=== PATIENT | female | born 2000 | race Caucasian/White ===

== ENCOUNTER 2024-06-20 16:08 | Emergency (ER) | payer OTHER ==
[2024-06-20 16:16] VITALS: BP 119/78; PULSE 70; RESP 18; TEMP 98.6; BMI 25.7
[2024-06-20] MEDS ORDERED: ONDANSETRON 4 MG/2 ML VIAL ONE (17:21)
[2024-06-20] MEDS ORDERED: FAMOTIDINE 20 MG/50 ML IVPB 20 MG/50 ML MG IVPB ONE (17:21)
[2024-06-20] MEDS: ONDANSETRON 4 MG/2 ML VIAL IVPUSH ONE (17:38)
[2024-06-20] MEDS: FAMOTIDINE 20 MG/50 ML IVPB 20 MG/50 ML MG IVPB ONE (17:38)
[2024-06-20] MEDS: SODIUM CHLORIDE 0.9% 500 ML INFUS.BAG IV ONE (17:38)
[2024-06-20 18:22] LABS: BASO % 0.4 % (0-2.0); EOS % 0.6 % (0-4.5); HEMATOCRIT 41.1 % (32.4-45.2); HEMOGLOBIN 14.2 GM/dL (10.7-15.3); LYMPH % 27.6 % (8-40); MCH 29.2 pg (25.7-33.7); MCHC 34.7 g/dl (32.0-36.0); MEAN CELL VOLUME 84.3 fl (80-96); MONO % 5.1 % (3.8-10.2); NEUT % 66.3 % (42.8-82.8); PLATELET COUNT 224 10^3/uL (134-434); RBC 4.88 M/mm3 (3.60-5.2); RDW 14.1 % (11.6-15.6); WHITE BLOOD COUNT 10.4 K/mm3 (4.0-10.0)
[2024-06-20 18:50] LABS: POTASSIUM 3.9 mmol/L (3.5-5.1)
[2024-06-20 18:52] LABS: ALBUMIN 4.4 g/dl (3.4-5.0); BLOOD UREA NITROGEN 6.9 mg/dL (7-18); CALCIUM 9.6 mg/dL (8.5-10.1)
[2024-06-20 18:56] LABS: CREATININE 0.6 mg/dL (0.55-1.3)
[2024-06-20 18:57] LABS: BILIRUBIN,TOTAL 0.7 mg/dL (0.2-1); TOT PROT 7.6 g/dl (6.4-8.2)
== END 2024-06-20 20:27 | disposition home or self-care (01) ==
LOC: JER 16:08
PROC: 3E033GC Introduction of Other Therapeutic Substance into Peripheral Vein, Percutaneous Approach (ICD-10-PCS; principal; 2024-06-20)
PROC: 3E033GC Introduction of Other Therapeutic Substance into Peripheral Vein, Percutaneous Approach (ICD-10-PCS; 2024-06-20)
DX: O26.891 Other specified pregnancy related conditions, first trimester (principal); R11.0 Nausea; Z3A.01 Less than 8 weeks gestation of pregnancy
CPT/HCPCS: 36415; 76815; 80053; 82272; 83690; 84702; 84703; 85025; 93005; 93010; 99285-25

== ENCOUNTER 2025-02-05 19:12 | Inpatient (IN) | payer OTHER ==
[2025-02-05] MEDS: ELECTROLYTE-148 SOLN 1,000 ML IV SCH (22:00)
[2025-02-05 22:20] LABS: ABSOLUTE IMMATURE GRANULOCYTES 0.05 x10^3/uL (0.0-0.031); EOSINOPHIL % 0.2 % (0.7-5.8); HEMATOCRIT 32.2 % (34.1-44.9); HEMOGLOBIN 10.9 g/dL (11.2-15.7); MCHC 33.9 g/dl (32.2-35.5); RDW 15.9 % (12.1-16.5)
[2025-02-05 22:24] VITALS: BMI 33.5
[2025-02-05 22:25] LABS: BASOPHILS # 0.03 x10^3/uL (0.01-0.08); EOSINOPHILS # 0.03 x10^3/uL (0.04-0.36); MEAN PLT VOLUME 12.9 fl (9.4-12.3); MONOCYTE # 0.77 x10^3/uL (0.24-0.86); MONOCYTE % 5.8 % (4.7-12.5); PLATELET COUNT 225 x10^3/uL (182-369)
[2025-02-05 22:29] LABS: INR 0.97 (0.83-1.09); PROTHROMBIN TIME (PATIENT) 10.7 SEC (9.7-13.0)
[2025-02-05] MEDS ORDERED: BUTORPHANOL TARTRATE 2 MG/ML VIAL ONE (22:30)
[2025-02-05 22:31] LABS: ACTIVATED PTT 26.8 SECONDS (25.2-36.5)
[2025-02-05] MEDS ORDERED: PROMETHAZINE HCL 25 MG/1 ML VIAL ONE (22:31)
[2025-02-05] MEDS: PROMETHAZINE HCL 25 MG/1 ML VIAL IVPB ONE (22:40)
[2025-02-05] MEDS: BUTORPHANOL TARTRATE 2 MG/ML VIAL IVPB PRN (22:40)
[2025-02-05 22:43] LABS: POTASSIUM 4.4 mmol/L (3.5-5.1)
[2025-02-05 22:44] LABS: CALCIUM 8.9 mg/dL (8.5-10.1)
[2025-02-05 22:45] LABS: BLOOD UREA NITROGEN 9.6 mg/dL (7-18)
[2025-02-05 22:48] LABS: CREATININE 0.5 mg/dL (0.55-1.3)
[2025-02-06] MEDS ORDERED: FENTANYL/BUPIVACAINE/NS/PF - PCEA - 50 ML DISP.SYRIN EP ONE ×3 (02:09→09:18)
[2025-02-06] MEDS: FENTANYL/BUPIVACAINE/NS/PF - PCEA - 50 ML DISP.SYRIN EP SCH ×2 (02:20→09:24)
[2025-02-06] MEDS ORDERED: NALOXONE HCL 0.4 MG/ML VIAL IVPUSH PRN (03:05)
[2025-02-06] MEDS ORDERED: OXYTOCIN 30 UNITS in 0.9% NS 30 UNIT/500 ML INFUS.BAG IVPB ONE (07:09)
[2025-02-06] MEDS: OXYTOCIN 30 UNITS in 0.9% NS 30 UNIT/500 ML INFUS.BAG IVPB SCH (07:15)
[2025-02-06] MEDS ORDERED: AMPICILLIN SODIUM 2 GM VIAL ONE (09:18)
[2025-02-06] MEDS ORDERED: SODIUM CHLORIDE 100 ML IVPB ONE (09:18)
[2025-02-06] MEDS: AMPICILLIN - 2 GM in SODIUM CHLORIDE 100 ML IVPB ONE (09:24)
[2025-02-06] MEDS ORDERED: ACETAMINOPHEN INJECTION 100 ML ONE (09:28)
[2025-02-06] MEDS ORDERED: OXYTOCIN 20 UNITS in 0.9% NS 20 UNIT/1,000 ML INFUS.BAG IV ONE (09:28)
[2025-02-06] MEDS: ACETAMINOPHEN 1000 MG/100 ML BAG IVPB PRN (09:59)
[2025-02-06] MEDS: OXYTOCIN 20 UNITS in 0.9% NS 20 UNIT/1,000 ML INFUS.BAG IV SCH (11:55)
[2025-02-06] MEDS ORDERED: oxyCODONE HCL 5 MG TABLET PO PRN (12:13)
[2025-02-06] MEDS ORDERED: BISACODYL 10 MG SUPP.RECT RC PRN (12:13)
[2025-02-06] MEDS ORDERED: BENZOCAINE 28 GM HEMORRHOIDAL OINTMENT TP PRN (12:13)
[2025-02-06] MEDS ORDERED: WITCH HAZEL 50% (TUCKS) 40 PAD/JAR PAD TP PRN (12:13)
[2025-02-06 13:00] LABS: CORD BASE EXCESS -7.8 mmol/L (0-2); CORD HCO3 19.1 mmHg (20-29); CORD PCO2 43.7 mmHg (30-78); CORD pH 7.258 (7.14-7.44)
[2025-02-06 13:04] LABS: CORD BASE EXCESS -9.1 mmol/L (0-2); CORD HCO3 21.8 mmHg (20-29); CORD PCO2 70.4 mmHg (30-78); CORD pH 7.109 (7.14-7.44)
[2025-02-06] MEDS: METHYLERGONOVINE MALEATE 0.2 MG/1 ML AMP IM PRN (13:44)
[2025-02-06] MEDS: AMPICILLIN - 1 GM in SODIUM CHLORIDE 100 ML IVPB SCH (15:15)
[2025-02-06] MEDS: FERROUS SO4 325 MG TABLET (FP) PO SCH (17:10)
[2025-02-06 18:03] VITALS: RESP 18
[2025-02-06] MEDS: IBUPROFEN 600 MG TABLET (FP) PO PRN (20:38)
[2025-02-06] MEDS: ACETAMINOPHEN 325 MG TABLET (FP) PO PRN (23:07)
[2025-02-07] MEDS: BENZOCAINE 20% 57 GM BOTTLE TP PRN (05:56)
[2025-02-07 06:39] LABS: ABSOLUTE IMMATURE GRANULOCYTES 0.07 x10^3/uL (0.0-0.031); BASOPHILS # 0.03 x10^3/uL (0.01-0.08); EOSINOPHIL % 0.7 % (0.7-5.8); HEMATOCRIT 26.6 % (34.1-44.9); MCHC 33.8 g/dl (32.2-35.5); MEAN CELL VOLUME 77.1 fl (79.4-94.8); MEAN PLT VOLUME 12.3 fl (9.4-12.3); MONOCYTE % 7.5 % (4.7-12.5); PLATELET COUNT 179 x10^3/uL (182-369); RDW 15.9 % (12.1-16.5)
[2025-02-07] MEDS: PRENATAL VITAMINS W/ FOLIC ACID TABLET (FP) PO SCH (09:31)
[2025-02-07] MEDS: DIPHTH,PERTUSS(ACELL),TET 0.5 ML DISP.SYRIN IM ONE (09:31)
[2025-02-07] MEDS: FLU VACCINE (FLUARIX) PF 45 MCG/0.5 ML SYRINGE 2024-2025 IM ONE (09:33)
[2025-02-08 09:04] VITALS: BP 104/70; PULSE 80; TEMP 97.9
[2025-02-08] MEDS: SENNOSIDES/DOCUSATE COMBO (SENNA PLUS) TABLET (UD) PO PRN (21:38)
== END 2025-02-08 22:13 | disposition home or self-care (01) | DRG 560 ==
LOC: JDEL 19:12 → JLDR 21:15 → J3W 02-06 15:00
PROVIDERS: ADMIT Obstetrics & Gynecology; ATTEND Obstetrics & Gynecology
PROC: 10E0XZZ Delivery of Products of Conception, External Approach (ICD-10-PCS; principal; 2025-02-06)
PROC: 0HQ9XZZ Repair Perineum Skin, External Approach (ICD-10-PCS; 2025-02-06)
PROC: 0W8NXZZ Division of Female Perineum, External Approach (ICD-10-PCS; 2025-02-06)
DX: O70.0 First degree perineal laceration during delivery (principal); Z3A.39 39 weeks gestation of pregnancy; Z37.0 Single live birth
CPT/HCPCS: 36415; 36600; 59025; 59409; 80048; 82803; 85025; 85610; 85730; 86780; 86850; 86900; 86901; 90656; 90715; J0131